=== PATIENT | male | born 1975 | race American Indian/Alaskan Native ===

== ENCOUNTER 2017-01-03 17:13 | Emergency (ER) | payer OTHER ==
--- NOTE | 2017-01-03 20:03 | Emergency Department Report ---
Abscess Boil HPI - HPI Chief Complaint: Skin/Abscess/Foreign Body Stated Complaint: SWOLLEN FINGER/LEFT HAND Time Seen by Provider: 01/03/17 19:50 Duration: 2 Days Location: Upper Extremity (left middle finger around nailbed with swelling and pain) Severity: Moderate History: Yes Pain (left middle finger), No Fever, No Purulent Drainage, No Numbness, No Foreign Body, No Previous History, No Insect Bite HPI: Patient here reported that he has swelling and pain around his nail bed to his left middle finger. He admits to nail biting. He said this is been going on for 2 days. Reports pain 7 out of 10. Denies any fever or chills. Home Medications: Previous Rx's Medication Instructions Recorded Last Taken Type Acetaminophen/Codeine [Tylenol #3] 1 tab PO Q6H PRN #15 tab 01/03/17 Unknown Rx Cephalexin [Keflex] 500 mg PO Q8HR #30 cap 01/03/17 Unknown Rx Allergies/Adverse Reactions: Allergies Allergy/AdvReac Type Severity Reaction Status Date / Time No Known Allergies Allergy Unverified 01/03/17 18:12 ED Review of Systems ROS: Stated complaint: SWOLLEN FINGER/LEFT HAND Other details as noted in HPI Comment: All other systems reviewed and negative Constitutional: denies: chills, fever Respiratory: no symptoms reported Cardiovascular: denies: chest pain, palpitations, edema, syncope Gastrointestinal: denies: nausea, vomiting Musculoskeletal: arthralgia. denies: back pain Skin: other (swelling, pain and redness to rt middle finger around nailbed) Neurological: denies: headache, numbness, paresthesias ED Past Medical Hx - Past Medical History Previous Medical History?: No - Surgical History Past Surgical History?: No - Family History Family history: hypertension - Social History Smoking Status: Never Smoker Substance Use Type: None - Medications Home Medications: Home Medications Medication Instructions Recorded Confirmed Last Taken Type Acetaminophen/Codeine [Tylenol #3] 1 tab PO Q6H PRN #15 tab 01/03/17 Unknown Rx Cephalexin [Keflex] 500 mg PO Q8HR #30 cap 01/03/17 Unknown Rx ED Abscess Boil Physical Exam - Exam General: Vital signs noted. No distress. Alert and acting appropriately. This is a 41 yo male well nourised , well developed in no acute distress Exam: Yes Tenderness (lt middle finger distally), Yes Surrounding Cellulites/ Erythema (lt middle finger distally), Yes Normal Neurologic Exam, Yes Normal Circulation, No Fluctuance, No Lymphangitis, No Crepitation, No Heart Murmur Exam: Lungs:CTAB. SKIN: lt middle finger with erythema, tenderness, induration minimally without fluctuance. no drainage I & D Note - I & D Note I & D Note: unable ti I&D. No fluctuance with minimal induration ED Course Vital Signs 01/03/17 18:12 Temperature 98.8 F Pulse Rate 78 Respiratory 18 Rate Blood Pressure 135/85 O2 Sat by Pulse 98 Oximetry - Reevaluation(s) Reevaluation #1: 01/03/17 21:10 Patient received motrin 800mg in ed for pain Critical care attestation.: If time is entered above; I have spent that time in minutes in the direct care of this critically ill patient, excluding procedure time. ED Medical Decision Making - Medical Decision Making ED COurse. I discussed with patient that he has infection around nailbed probably from nail biting. I encouraged him to soak finger in warm water 3-4X/ day to facilitates softening. Patient instructed on diagnosis and treatment plan. discharge home on tylenol # 3 and keflex. He was given motrin 800mg in ED for pain ED Disposition Clinical Impression: Cellulitis of left middle finger Disposition: DISCHARGED TO HOME OR SELFCARE Is pt being admited?: No Does the pt Need Aspirin: No Condition: Stable Instructions: Cellulitis (ED) Additional Instructions: Please do not drive or operate heavy machinary while taking TYlenol #3 Take antibiotic as prescribed Soak finger in warm water 3 x per day Prescriptions: Acetaminophen/Codeine [Tylenol #3] 1 tab PO Q6H PRN #15 tab PRN Reason: Pain Cephalexin [Keflex] 500 mg PO Q8HR #30 cap Referrals: PRIMARY CARE, [Primary Care Provider] - 3-5 Days Forms: Accompanied Note, Work/School Release Form(ED)
[2017-01-03] MEDS ORDERED: MOTRIN PO ONE (20:04)
[2017-01-03 21:36] VITALS: BP 136/84
== END 2017-01-03 21:37 | disposition home or self-care (01) ==
LOC: ED 17:13
DX: L03.012 Cellulitis of left finger (principal)
CPT/HCPCS: 99282